=== PATIENT | male | born 1975 | race American Indian/Alaskan Native ===

== ENCOUNTER 2019-09-14 00:50 | Emergency (ER) | payer SELFPAY ==
[2019-09-14 01:02] VITALS: BP 141/100
== END 2019-09-14 01:45 | disposition left against medical advice (07) ==
LOC: ED 00:50
DX: Z00.00 Encounter for general adult medical examination without abnormal findings (principal); Z53.21 Procedure and treatment not carried out due to patient leaving prior to being seen by health care provider